=== PATIENT | male | born 1960 | race Caucasian/White ===

== ENCOUNTER → 2017-02-25 | Day surgery (SDC) | payer OTHER ==
[~2017-02-25] MED LIST: ALLEGRA; CARAFATE; CLINDAMYCIN HC300 MG PO; CLONIDINE HCL0.1 MG PO; FAMOTIDINE 40 MG; FENTANYL CITRATE/PF 100MCG/2 ML INJ ONE; FIBER; HYOSCYAMINE SULFATE 0.5 MG/ML AMP ONE; LEVAQUIN750 MG PO; LIDOCAINE HCL 2% LOCAL INJ 5 ML SDV VIAL INJ ONE; LISINOPRIL-HCT1 EAC2 PO; MIDAZOLAM HCL 2 MG/2 ML VIAL ONE; PROPOFOL IV EMULSION 10 MG/ML 20 ML VIAL ONE; PROPOFOL IV EMULSION 10 MG/ML 50 ML VIAL ONE; REGLAN10 MG
--- NOTE | 2017-02-26 08:58 | Operative Report ---
DATE OF PROCEDURE: February 25, 2017 PROCEDURE PERFORMED: Colonoscopy and polypectomy. INDICATIONS FOR COLONOSCOPY: Colorectal cancer screening, personal history of colon polyps. MEDICATION: Patient was done under MAC. Please see anesthesiologist's note. PROCEDURE: With the patient in the left lateral decubitus position, the flexible fiberoptic Olympus colonoscope was inserted into the rectum with ease and advanced all the way to the cecum. An approximately 1.2-cm, sessile, flat, polypoid lesion was noted in the cecum, and that was resected subtotally per piecemeal electrocautery. The polypectomy site was also hemoclipped. The scope was then withdrawn slowly, and 1 polyp was snared from the ascending colon. One polyp was hot biopsied and 1 polyp was snared from the transverse colon. The descending colon appeared to be within normal limits. Diverticular disease was noted to involve the sigmoid colon. One polyp was hot biopsied from the sigmoid colon. The rectum appeared to be within normal limits. The scope was then retroflexed into the distal rectum, and small internal hemorrhoids were noted, none of which was actively bleeding. The scope was then straightened out. The rectosigmoid area as well as the distal rectal area were decompressed. The scope was subsequently withdrawn. Patient tolerated the procedure well. IMPRESSION 1. Cecal polyp, sessile, flat, approximately 1.2 cm in size, subtotally resected per piecemeal electrocautery. Polypectomy site hemoclipped. 2. Ascending colon polyp times 1, snared. 3. Transverse colon polyps times 2, one snared and one hot biopsied. 4. Diverticulosis. 5. Sigmoid colon polyp, hot biopsied. 6. Internal hemorrhoids, none actively bleeding. PLAN: Follow up histology. Initiate high-fiber, low-fat diet. Initiate high-fiber supplement. Timing of followup colonoscopy pending pathology report. Job#: [id number]
== END | disposition home or self-care (01) ==
LOC: OR 11:24
PROVIDERS: ATTEND Internal Medicine Gastroenterology
DX: Z12.11 Encounter for screening for malignant neoplasm of colon (principal); D12.0 Benign neoplasm of cecum; D12.2 Benign neoplasm of ascending colon; D12.3 Benign neoplasm of transverse colon; K57.30 Diverticulosis of large intestine without perforation or abscess without bleeding; K64.8 Other hemorrhoids; F41.9 Anxiety disorder, unspecified; T78.40XA Allergy, unspecified, initial encounter; X58.XXXA Exposure to other specified factors, initial encounter; Z01.810 Encounter for preprocedural cardiovascular examination; Z68.36 Body mass index [BMI] 36.0-36.9, adult
CPT/HCPCS: 45384; 45385; 45388; 93005; J1980; J2001; J2250; 44391

== ENCOUNTER → 2017-05-13 | Day surgery (SDC) | payer OTHER ==
[~2017-05-13] MED LIST changes: +ONDANSETRON HCL INJ 2 MG/ML VIAL ONE; -PROPOFOL IV EMULSION 10 MG/ML 20 ML VIAL ONE; +TYLENOL
--- NOTE | 2017-05-13 09:35 | Operative Report ---
DATE OF PROCEDURE: May 13, 2017 PROCEDURE PERFORMED: Colonoscopy and polypectomy. INDICATIONS FOR COLONOSCOPY: Patient with history of large cecal polyp, partially resected on previous colonoscopy and in for followup colonoscopy to remove any residual polypoid tissue. MEDICATION: Patient was done under MAC. Please see anesthesiologist's note. PROCEDURE: With patient in the left lateral decubitus position, the flexible fiberoptic Olympus colonoscope was inserted into the rectum with ease and advanced all the way to the cecum. A minute polyp was noted in the cecum that was hot biopsied and site was hemoclipped prophylactically. One minute polyp was snared from the ascending colon. The transverse appeared to be within normal limits. Diverticular disease was noted to involve the distal, descending and the sigmoid colon and rectum appeared to be within normal limits. The scope was then retroflexed into the distal rectum and small internal hemorrhoids were noted, none of which was actively bleeding. The scope was then straightened out and the rectosigmoid area as well as the distal rectal area were decompressed. Scope was subsequently withdrawn. Patient tolerated procedure well. IMPRESSION: 1. Cecal polyp, hot biopsied, polypectomy site hemoclipped. 2. Ascending colon polyp, snared. 3. Diverticulosis. 4. Internal hemorrhoids, none actively bleeding. PLAN: Follow up histology. Initiate high-fiber, low-fat diet. Initiate high-fiber supplement. Patient will need a followup colonoscopy in 1 to 2 years. Job#: [id number]
== END | disposition home or self-care (01) ==
LOC: OR 05:25
PROVIDERS: ATTEND Internal Medicine Gastroenterology
DX: D12.0 Benign neoplasm of cecum (principal); K57.30 Diverticulosis of large intestine without perforation or abscess without bleeding; K64.8 Other hemorrhoids; K21.9 Gastro-esophageal reflux disease without esophagitis; K44.9 Diaphragmatic hernia without obstruction or gangrene; Z01.810 Encounter for preprocedural cardiovascular examination
CPT/HCPCS: 45384; 45385; 93005; J1980; J2001; J2250; J2405; 44391

== ENCOUNTER → 2018-06-02 | Day surgery (SDC) | payer OTHER ==
[~2018-06-02] MED LIST changes: +GLUCAGON FOR INJ 1 MG VIAL ONE; +HYOSCYAMINE 0.125 MG TAB ONE; -HYOSCYAMINE SULFATE 0.5 MG/ML AMP ONE; -ONDANSETRON HCL INJ 2 MG/ML VIAL ONE
--- NOTE | 2018-06-02 17:48 | Operative Report ---
DATE OF PROCEDURE: 06/02/2018 SURGEON: Rickey Veronica MD PROCEDURE PERFORMED: Colonoscopy with polypectomy and biopsies. INDICATIONS FOR COLONOSCOPY: Surveillance colonoscopy, history of large cecal polyp. MEDICATIONS: The patient was done under MAC, please see anesthesiologist's note. DESCRIPTION OF PROCEDURE: With the patient in left lateral decubitus position, a flexible fiberoptic Olympus colonoscope was inserted into the rectum with ease and advanced all the way to the cecum. Polypectomy site was noted and no residual polypoid tissue was noted in the cecum. The scope was then withdrawn slowly. Mucosa overlying the ascending colon appeared to be within normal limits. One polyp was hot biopsied from the transverse colon. Some diverticular disease was noted in the sigmoid colon. The descending was within normal limits. Some scattered ulcerations were noted in the sigmoid and biopsies were obtained. Two polyps were hot biopsied from the rectum. The scope was then retroflexed into the distal rectum and small internal hemorrhoids were noted, none of which was actively bleeding. The scope was then straightened out and was subsequently withdrawn. The patient tolerated the procedure well. IMPRESSION: 1. Transverse colon polyp, hot biopsied. 2. Diverticulosis. 3. Scattered ulcers, sigmoid colon, biopsied. 4. Rectal polyps x2, hot biopsied. 5. Internal hemorrhoids, none actively bleeding. PLAN: Follow up histology. Initiate high-fiber and low-fat diet. Initiate high-fiber supplement. The patient might benefit from a followup colonoscopy in 3 years. Rickey Veronica MD [facility] [place] /[id number] cc: Rickey Veronica MD
== END | disposition home or self-care (01) ==
LOC: OR 07:26
PROVIDERS: ATTEND Internal Medicine Gastroenterology
DX: Z12.11 Encounter for screening for malignant neoplasm of colon (principal); Z86.010 Personal history of colon polyps; K57.30 Diverticulosis of large intestine without perforation or abscess without bleeding; D12.3 Benign neoplasm of transverse colon; K62.1 Rectal polyp; K64.8 Other hemorrhoids; K63.3 Ulcer of intestine
CPT/HCPCS: 45384; 93005; J1610; J2001; J2250; J2704; 45380